=== PATIENT | female | born 1995 | race African-American/Black ===

== ENCOUNTER 2017-02-01 21:56 | Outpatient (CLI) | payer OTHER ==
[~2017-02-01] VITALS: Ht 157.5 cm; Wt 83.0 kg
[~2017-02-01 21:56] MED LIST: PARO20TA3 PO
[2017-02-01 22:10] VITALS: BP 128/76
== END 2017-02-01 23:00 | disposition home or self-care (01) ==
LOC: M LDO 21:56
PROVIDERS: ATTEND Student in an Organized Health Care Education/Training Program
DX: O47.1 False labor at or after 37 completed weeks of gestation (principal); Z3A.40 40 weeks gestation of pregnancy

== ENCOUNTER 2017-02-03 07:03 | Inpatient (IN) | payer OTHER ==
[~2017-02-03] VITALS: Ht 157.5 cm; Wt 80.0 kg
[2017-02-03] MEDS ORDERED: LR 1,000 ML IV SCH (08:15)
[2017-02-03] MEDS ORDERED: LACTATED RINGER'S 1000 ML IV STA (08:15)
[2017-02-03 08:31] LABS: MEAN CORPUSCULAR HGB CONC 31.9 g/dl (32.0-36.5); MEAN CORPUSCULAR VOLUME 84.8 fl (80.0-96.0); RED CELL DISTRIBUTION WIDTH 13.9 % (11.5-14.5); WHITE BLOOD COUNT 11.8 K/mm3 (4.0-10.0)
--- NOTE | 2017-02-03 08:41 | HPEPDOC ---
Obstetrical History & Physical General Date of Admission Feb 03, 2017 at 08:10 History of Present Illness 21 y/o at 40+4 with painful reg ctx's since MN. No LOF/VB. 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 Past Medical History Medical History denies Surgical History: [place] teeth Family History Significant Family History: No pertinent family hx Social History Marital Status: Psychosocial History: No pertinent psych hx * Smoker: non-smoker Alcohol: Denies Drugs: denies Abuse Violence Screening Have you been hit/kicked/slapp: No Have you been sexually assault: No Imunizations Tdap status: current Influenza Status: current Allergies Coded Allergies: No Known Drug Allergy (Verified Allergy, Unknown, 07/16/15) Medications Scheduled Paroxetine (Paroxetine HCl) 20 Mg Tab, 20 MG PO QHS for MOOD Physical Examination Physical Examination GENERAL: Alert and oriented times three. ABDOMEN: Gravid and non-tender to touch. FETUS: Is vertex (VTX) by sterile vaginal examination (SVE). Cx 5/100/-1 EXTREMITIES: No edema. Laboratory Data [facility] Laboratory Tests 2 02/03/17 08:15: Serology Scanned Report Hepatitis B Testing Urine Culture: No Growth Pertinent Laboratoy Data Blood Type: O+ RBC Antibody Screen: Negative HIV: Negative Hepatitis B: Negative Hepatitis C: Unknown Rapid Plasma Reagin: Nonreactive Rubella: Immune Varicella: Immune Chlamydia/Gonorrhea: Negative Group B Streptococcus: Negative Quad Screen Test: Negative Cystic Fibrosis: Declined Glucose Tolerance Test: 77 Anatomy Ultrasound Placenta Location: Posterior Normal Anatomy: Yes Placenta Previa: No Estimated Weight (grams): 3400 Assessment Variability: Moderate Accelerations: Positive Decelerations: None Tocometer Contractions: Yes Frequency: regular Assessment/Plan Assessment Active labor Plan Admit and orient. 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 Diet: clrs Group B Streptococcus (GBS) negative Labs and intravenous (IV) per unit protocol. Counseled on Pitocin and induction of labor (IOL). Lactated Ringers (LR): Bolus 1000 mL, then at 125 mL/hr. Anticipate normal spontaneous delivery (). C-S as appropriate. Epidural OK SESSIONS,GABRIELLA Thibodeaux MD Feb 03, 2017 08:41
[2017-02-03] MEDS ORDERED: FAMOTIDINE 20 MG TAB PO SCH (09:00)
[2017-02-03] MEDS ORDERED: FENTANYL 2MCG/ML ROPIVACAINE 0.2% IN 0.9% NACL 200ML IVBAG As Ordered ONE (09:33)
[2017-02-03] MEDS ORDERED: FENTANYL/ROPIVACAINE/NACL BAG 200 ML EPIDURAL SCH (11:00)
[2017-02-03] MEDS ORDERED: LACTATED RINGER'S 1000 ML IV PRN (11:00)
[2017-02-03] MEDS ORDERED: ePHEDrine SULFATE 25 MG/5 ML(5MG/ML) SYRINGE IV PRN (11:00)
[2017-02-03] MEDS ORDERED: diphenhydrAMINE INJ 50MG/ML VIAL (J1200) IV PRN (11:00)
[2017-02-03] MEDS ORDERED: NALOXONE INJ 0.4 MG/1 ML VIAL (J2310) IV PRN (11:00)
[2017-02-03] MEDS ORDERED: EPIDURAL COMMENT XX SCH (11:00)
[2017-02-03] MEDS ORDERED: ONDANSETRON 4MG/2ML VIAL (J2405) IV PRN (11:00)
[2017-02-03] MEDS ORDERED: EPIDURAL/PCA KEYS XX PRN (11:00)
[2017-02-03] MEDS ORDERED: REFRIGERATOR IV KEYS XX PRN (11:00)
[2017-02-03] MEDS ORDERED: PRENTAB9 PO (12:28)
[2017-02-03] MEDS ORDERED: OXYTOCIN 30 UNITS IN 0.9% NaCl 500ML IV BAG (J2590) As Ordered ONE (14:06)
[2017-02-03] MEDS ORDERED: OXYTOCIN DRIP 30 UNITS in APPROPRIATE DILUENT 1 EA IV SCH (14:15)
[2017-02-03] MEDS ORDERED: FAMOTIDINE 20 MG TAB As Ordered ONE (16:10)
[2017-02-03 17:43] LABS: CORD GAS HCO3 A 22.3 MEQ/L; CORD GAS O2 SAT A 48.3 %; CORD GAS PCO2 A 45.3 mmHg; CORD GAS PH A 7.311 UNITS; CORD GAS PO2 A 22.2 mmHg; CORD GAS SBC A 19.9 MEQ/L; CORD GAS TCO2 A 23.7 MEQ/L
[2017-02-03 17:45] LABS: CORD GAS ABE V -4.2; CORD GAS HCO3 V 22.3 MEQ/L; CORD GAS O2 SAT V 47.6 %; CORD GAS PCO2 V 45.8 mmHg; CORD GAS PH V 7.306 UNITS; CORD GAS PO2 V 23.1 mmHg; CORD GAS SBC V 19.8 MEQ/L; CORD GAS TCO2 V 23.7 MEQ/L
[2017-02-03] MEDS ORDERED: RHOGAM 300 MCG (1500 IU) INJ (J2790) IM SCH (18:15)
[2017-02-03] MEDS ORDERED: METHYLERGONOVINE MALEATE 0.2 MG TAB PO PRN (18:15)
[2017-02-03] MEDS ORDERED: MOM 30ML SUSPENSION UDC PO PRN (18:15)
[2017-02-03] MEDS ORDERED: ANUSOL HC CREAM 30GM TOP PRN (18:15)
[2017-02-03] MEDS ORDERED: DOCUSATE SODIUM 100 MG CAP PO PRN (18:15)
[2017-02-03] MEDS ORDERED: DIBUCAINE 1% OINTMENT 30GM TOP PRN (18:15)
[2017-02-03] MEDS ORDERED: IBUPROFEN 800 MG TAB PO PRN (18:15)
[2017-02-03] MEDS ORDERED: MEASLES,MUMPS,RUBELLA VACCINE INJ (MMR-II) (90707) SC SCH (18:15)
[2017-02-03] MEDS ORDERED: ACETAMINOPHEN 500 MG TAB PO PRN (18:15)
[2017-02-03] MEDS ORDERED: CALCIUM CARBONATE 500 MG CHEW U/D PO PRN (21:15)
[2017-02-03 22:10] VITALS: BP 108/59
[2017-02-04 05:30] VITALS: BP 117/67
[2017-02-04 06:41] LABS: MEAN CORPUSCULAR HEMOGLOBIN 28.3 pg (27.0-33.0); MEAN CORPUSCULAR HGB CONC 33.8 g/dl (32.0-36.5); MEAN CORPUSCULAR VOLUME 83.7 fl (80.0-96.0); RED CELL DISTRIBUTION WIDTH 13.7 % (11.5-14.5); WHITE BLOOD COUNT 13.1 K/mm3 (4.0-10.0)
[2017-02-04] MEDS: PRENATAL VITAMINS CHEWABLE TABLET PO SCH (07:31)
--- NOTE | 2017-02-04 08:47 | DN ---
DATE: 02/03/2017 This lady was fully dilated and pushing, had an epidural in place, delivered over a first-degree spontaneous tear, a live male infant weighing 7 pounds 6 ounces, 3342 grams. scores of 9, 9 at 1 and 5 minutes, respectively. Baby had terminal meconium at delivery. Arterial and venous pH was performed. Placenta delivered spontaneously thereafter. Three-vessel cord, membranes, and tissues intact. We examined the perineum and the lateral vaginal escamilla anterior and posterior, she sustained a first-degree tear which was oversewn with of a Vicryl on a J339 needle. Sphincter was tight to complete. Mucosa was intact. The uterus contracted well under Pitocin. The patient and baby tolerated procedure well.
--- NOTE | 2017-02-04 12:45 | IPN ---
DATE: 02/03/2017 This patient and her requested circumcision of their male . After discussing the risks and benefits of the circumcision, the medical and the nonmedical indications, the penile block and aftercare, expressed understanding of penile block and aftercare, signed and witnessed the consent form. We await the clearance by the zinc etcher.
--- NOTE | 2017-02-04 16:38 | IPN ---
DATE: 02/04/2017 This lady is a 21-year-old 1, now para 1, who was admitted at 40 and four weeks of gestation with contractions, had a spontaneous vaginal delivery with epidural, male infant 7 pounds, 6 ounces, 3342 grams, of 9 and 9 at one and five minutes respectfully, had terminal meconium at delivery. Arterial pH was 7.31, base excess -4.0, venous pH 7.30, base excess -4.2. Admitting hemoglobin 10.9, hematocrit 34.1, and platelets 248. day one hemoglobin 10.5, hematocrit 31.2, and platelets are 215. This morning, her blood pressure is 117/67, respirations 18, pulse of 106, temperature is 99.1. The rest of the examination is unremarkable. She is normocephalic, atraumatic. Neck: Full range of motion. Pupils are equal and reactive to light. Distal pulses are symmetric. No evidence of deep vein thrombosis (DVT), pulmonary embolism (PE) or superficial phlebitis. Chest is clear bilaterally to the bases. No wheezes or rhonchi. No costovertebral angle (CVA) tenderness. Abdomen: Soft. Uterus 2 below. Lochia is moderate. Perineum is healing. Four quadrant bowel sounds are noted. No rashes, lesions or pruritus. No arthralgia or myalgia. No complaints of cough, wheezes, shortness of breath or dyspnea on exertion. No chest pain. She is not bleeding. Neurologically complete. No urgency, frequency or incontinence. No nausea, vomiting, diarrhea or constipation. No diabetic issues. PAST GYNECOLOGIC HISTORY: Noncontributory. PAST MEDICAL HISTORY: Noncontributory. PAST SURGICAL HISTORY: Noncontributory. FAMILY HISTORY: Noncontributory. SOCIAL HISTORY: She does not smoke, drink or abuse drugs. There is no domestic violence. 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 Planning on discharge for tomorrow. Medications will be dispensed at discharge.
[2017-02-04 17:24] VITALS: BP 118/67
[2017-02-05 06:30] VITALS: BP 113/72
[2017-02-05] MEDS: PRENATAL VITAMINS CHEWABLE TABLET PO SCH (07:39)
[2017-02-05] MEDS ORDERED: NUPE1OIN2 TOP (08:34)
[2017-02-05] MEDS ORDERED: MOM30SS PO (08:34)
[2017-02-05] MEDS ORDERED: ACET50TA PO (08:34)
[2017-02-05] MEDS ORDERED: ANUS2.5C2 TOP (08:34)
[2017-02-05] MEDS ORDERED: IBUP-1114 PO (08:34)
[2017-02-05] MEDS ORDERED: COLA100C5 PO (08:34)
[2017-02-05] MEDS ORDERED: OXYTOCIN INJ 10 UNITS/ML VIAL (J2590) IV ONE (09:00)
--- NOTE | 2017-02-05 10:21 | DSES ---
DATE OF ADMISSION: 02/03/2017 DATE OF DISCHARGE: This lady is a 21-year-old, now 1, para 1, admitted with contractions at 44 weeks of gestation, with spontaneous vaginal delivery of a livebirth male , 7 pounds 6 ounces, 3342 grams. scores of 9 and 9 at 1 and 5 minutes, respectively. Arterial pH was 7.11, base excess -8.5. Venous pH 7.29, base excess -5.3. Admitting hemoglobin 10.9, hematocrit 33.5, platelets 322. Discharge hemoglobin 10.0, hematocrit 30.4, platelets are 283. Vital signs: On discharge, blood pressure is 129/80, respirations were not recorded, pulse was 115, and temperature was not recorded. We discussed phlebitis, cystitis, mastitis, endometritis, cellulitis, diet, exercise, pain management, perineal, breast, and wound care. The patient was given medications on discharge. Will be seen at 6 weeks . The rest of the examination is unremarkable. She is normocephalic, atraumatic. Neck: Full range of motions. Pupils equal and reactive to light. Distal pulses symmetric. No evidence of deep venous thrombosis (DVT), pulmonary embolism (PE), or superficial phlebitis. Chest is clear bilaterally to bases. No wheezes or rhonchi. Abdomen: Soft. Uterus 2 below. Lochia is moderate. Four-quadrant bowel sounds are noted. No rashes, lesions or pruritus. No arthralgia or myalgia. No complaints of cough, wheezes, shortness of breath, or dyspnea on exertion. No incontinence, urgency, or frequency. No nausea, vomiting, diarrhea, or constipation. 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 She does not smoke or drink, does not abuse drugs. She is . There is no domestic violence. In summary, we have a term gestation, delivered a livebirth male infant. Discharged. Followup in 6 weeks' time , [facility] ([facility]).
== END 2017-02-05 10:30 | disposition home or self-care (01) | DRG 775 ==
LOC: M LDO 07:03 → M LDI 08:10 → M OBS 22:10
PROVIDERS: ADMIT Obstetrics & Gynecology; ATTEND Obstetrics & Gynecology
PROC: 10E0XZZ Delivery of Products of Conception, External Approach (ICD-10-PCS; principal; 2017-02-03)
PROC: 0HQ9XZZ Repair Perineum Skin, External Approach (ICD-10-PCS; 2017-02-03)
PROC: 10907ZC Drainage of Amniotic Fluid, Therapeutic from Products of Conception, Via Natural or Artificial Opening (ICD-10-PCS; 2017-02-03)
DX: O48.0 Post-term pregnancy (principal); Z37.0 Single live birth; Z3A.40 40 weeks gestation of pregnancy; D64.9 Anemia, unspecified; Z79.899 Other long term (current) drug therapy; O70.0 First degree perineal laceration during delivery; O77.0 Labor and delivery complicated by meconium in amniotic fluid; O99.02 Anemia complicating childbirth